=== PATIENT | female | born 1945 | race Caucasian/White ===

== ENCOUNTER 2017-10-08 14:02 | Inpatient (IN) | payer OTHER ==
[2017-10-08] MEDS: ALBUTEROL 0.5% (NEB) 2.5 MG/0.5 ML AMP INH (15:17)
[2017-10-08 15:59] LABS: ADD MAN DIFF? NO
[2017-10-08 16:02] LABS: ABNORMAL IP MESSAGE 1; BASOPHILS % 0.1 % (0.0-2.0); HEMATOCRIT 40.7 % (37.0-47.0); HEMOGLOBIN 12.6 g/dl (12.0-16.0); LYMPHOCYTES # 0.3 10^3/ul (0.8-2.9); LYMPHOCYTES % 1.6 % (15.0-51.0); MEAN CORPUSCULAR HEMOGLOBIN 31.1 pg (29.0-33.0); MEAN CORPUSCULAR VOLUME 100.5 fl (82.0-101.0); MEAN PLATELET VOLUME 10.3 fl (7.4-10.4); MONOCYTE # 1.1 10^3/ul (0.3-0.9); MONOCYTES % 4.9 % (0.0-11.0); NEUTROPHIL # 20.3 10^3/ul (1.6-7.5); NEUTROPHILS % 92.9 % (39.0-77.0); PLATELET COUNT 323 10^3/UL (140-415); RED BLOOD COUNT 4.05 10^6/ul (4.20-5.40); RED CELL DISTRIBUTION WIDTH 14.1 % (11.5-14.5)
[2017-10-08 16:02] LABS: WHITE BLOOD COUNT 21.8 10^3/ul (4.8-10.8)
[2017-10-08] MEDS: METHYLPREDNISOLONE 125 MG INJ IV ×2 (16:02→23:55)
[2017-10-08 16:04] LABS: POSITIVE DIFF @See below
[2017-10-08] MEDS: SOD CHLORIDE 0.9% 500 ML IV (16:08)
[2017-10-08 16:21] LABS: ANION GAP 13 (8-16); BLOOD UREA NITROGEN 16 mg/dl (7-20); CALCIUM 8.9 mg/dl (8.4-10.2); CARBON DIOXIDE 35 mmol/L (21-31); CHLORIDE 94 mmol/L (97-110); CREATININE 0.52 mg/dl (0.44-1.00); GLUCOSE 141 mg/dl (70-220); POTASSIUM 4.3 mmol/L (3.5-5.1); SODIUM 138 mmol/L (135-144)
[2017-10-08 16:33] LABS: B-TYPE NATRIURETIC PEPTIDE 2180 PG/ML (0-125); TROPONIN-I 0.012 ng/ml (0.00-0.12)
[2017-10-08] MEDS: LORAZEPAM 2 MG INJ IV ×2 (16:38→21:31)
[2017-10-08] MEDS: CEFEPIME 1GM/50 ML (PMX) 50 ML IVPB (17:02)
[2017-10-08] MEDS: VANCOMYCIN 1 GM (PMX) 250 ML IVPB (18:02)
[2017-10-08] MEDS ORDERED: ACETAMINOPHEN 325 MG TAB PO ×2 (19:00→19:30)
[2017-10-08] MEDS ORDERED: ONDANSETRON 4 MG INJ IV ×2 (19:00→19:30)
[2017-10-08] MEDS ORDERED: PIPER-TAZO 3.375 GM IV (PMX) 100 ML IVPB (19:30)
[2017-10-08] MEDS ORDERED: ALPRAZOLAM 0.5 MG TAB PO (19:30)
[2017-10-08] MEDS ORDERED: ZOLPIDEM 5 MG TAB PO (19:30)
[2017-10-08] MEDS ORDERED: LORAZEPAM 0.5 MG TAB PO (19:30)
[2017-10-08] MEDS ORDERED: DOCUSATE SODIUM 100 MG CAP PO (19:30)
[2017-10-08] MEDS ORDERED: LEVOFLOXACIN 750MG/D5W (PMX) 150 ML IV (19:30)
[2017-10-08] MEDS ORDERED: ALBUTEROL/IPRATROPIUM (NEB) 3 ML AMP NEB (19:30)
[2017-10-08] MEDS ORDERED: VANCOMYCIN IV PER PHARMACY XX (19:30)
[2017-10-08] MEDS: LEVOFLOXACIN 750MG/D5W (PMX) 150 ML IV (19:35)
[2017-10-08] MEDS: PIPER-TAZO 3.375 GM IV (PMX) 100 ML IVPB (20:07)
[2017-10-08 20:24] LABS: LACTIC ACID 1.4 mmol/L (0.5-2.0)
[2017-10-08] MEDS: ALBUTEROL/IPRATROPIUM (NEB) 3 ML AMP NEB (20:40)
[2017-10-08 20:41] LABS: TROPONIN-I < 0.012 ng/ml (0.00-0.12)
[2017-10-08] MEDS: traZODone 100 MG TAB PO (21:00)
[2017-10-08] MEDS: morphine (ER) 30 MG TAB PO (21:00)
[2017-10-08 21:44] LABS: LACTIC ACID 1.8 mmol/L (0.5-2.0)
[2017-10-08] MEDS: SALMETEROL/FLUTICASONE 500/50 INHA INH (22:27)
[2017-10-08] MEDS: MONTELUKAST 10 MG TAB PO (22:28)
[2017-10-08] MEDS: MOMETASONE 0.24 GM INHALER INH (22:28)
[2017-10-08] MEDS: AMIODARONE 200 MG TAB PO (22:29)
[2017-10-09] MEDS ORDERED: SOD CHLORIDE 0.9% 1,000 ML IV (00:30)
[2017-10-09] MEDS: ALBUTEROL/IPRATROPIUM (NEB) 3 ML AMP NEB ×6 (01:01→20:07)
[2017-10-09] MEDS: PIPER-TAZO 3.375 GM IV (PMX) 100 ML IVPB ×2 (01:38→05:58)
[2017-10-09 01:49] LABS: TROPONIN-I < 0.012 ng/ml (0.00-0.12)
[2017-10-09] MEDS: PANTOPRAZOLE (EC) 40 MG TAB PO (06:00)
[2017-10-09] MEDS: METHYLPREDNISOLONE 125 MG INJ IV ×3 (06:00→17:44)
[2017-10-09] MEDS: VANCOMYCIN 1 GM in 250 ML IVPB ×2 (06:03→17:44)
[2017-10-09 07:47] LABS: AADO2 Arterial 20.6 mmHg (7.0-24.0); Allen Test ACCEPTAB; Arterial Blood Gas Oxygen Sat 98.5 mmHG (95.0-100.0); Arterial Fraction of Oxyhgb 97.1 % (93.0-99.0); Arterial HCO3 35.7 mmol/L (22.0-26.0); Arterial MetHb 0.4 % (0.0-1.5); Arterial Total Hemglobin 13.9 g/dl (12.0-18.0); Arterial pCO2 71.3 mmhg (35-45); MODE NASAL CANNULA; Site Right Radial
[2017-10-09] MEDS: BISACODYL 10 MG SUPP PR (09:00)
[2017-10-09] MEDS: [UNRECOGNIZED DRUG - REMARK] XX ×2 (09:00→21:00)
[2017-10-09] MEDS ORDERED: SPIRONOLACTONE 25 MG TAB PO (09:00)
[2017-10-09] MEDS ORDERED: ASPIRIN 81 MG TAB PO (09:00)
[2017-10-09] MEDS: morphine (ER) 30 MG TAB PO ×2 (09:00→20:28)
[2017-10-09] MEDS ORDERED: METOPROLOL (XL) 100 MG TAB PO (09:00)
[2017-10-09] MEDS: SERTRALINE 100 MG TAB PO (09:33)
[2017-10-09] MEDS: ASPIRIN (EC) 325 MG TAB PO (09:34)
[2017-10-09] MEDS: ALPRAZOLAM 0.25 MG TAB PO ×3 (09:34→20:28)
[2017-10-09] MEDS: AMIODARONE 200 MG TAB PO (09:35)
[2017-10-09 09:36] LABS: ADD MAN DIFF? NO
[2017-10-09 09:46] LABS: WHITE BLOOD COUNT 12.3 10^3/ul (4.8-10.8)
[2017-10-09 09:46] LABS: ABNORMAL IP MESSAGE 1; BASOPHILS % 0.1 % (0.0-2.0); HEMOGLOBIN 12.7 g/dl (12.0-16.0); LYMPHOCYTES # 0.2 10^3/ul (0.8-2.9); LYMPHOCYTES % 1.2 % (15.0-51.0); MEAN CORPUSCULAR HEMOGLOBIN 31.7 pg (29.0-33.0); MEAN CORPUSCULAR HGB CONC 31.8 g/dl (32.0-37.0); MEAN CORPUSCULAR VOLUME 99.8 fl (82.0-101.0); MEAN PLATELET VOLUME 10.9 fl (7.4-10.4); MONOCYTE # 0.4 10^3/ul (0.3-0.9); MONOCYTES % 3.3 % (0.0-11.0); NEUTROPHIL # 11.7 10^3/ul (1.6-7.5); NEUTROPHILS % 94.9 % (39.0-77.0); PLATELET COUNT 320 10^3/UL (140-415); RED BLOOD COUNT 4.01 10^6/ul (4.20-5.40)
[2017-10-09] MEDS: SALMETEROL/FLUTICASONE 500/50 INHA INH ×2 (09:58→20:26)
[2017-10-09] MEDS: MOMETASONE 0.24 GM INHALER INH ×2 (09:58→20:26)
[2017-10-09 10:06] LABS: POSITIVE DIFF @See below
[2017-10-09 10:15] LABS: ALANINE AMINOTRANSFERASE 84 IU/L (13-69); ALBUMIN/GLOBULIN RATIO 1.07; ALKALINE PHOSPHATASE 314 IU/L (42-121); ANION GAP 15 (8-16); ASPARTATE AMINO TRANSFERASE 22 IU/L (15-46); BILIRUBIN,INDIRECT 0.4 mg/dl (0-1.1); BILIRUBIN,TOTAL 0.4 mg/dl (0.2-1.3); BLOOD UREA NITROGEN 15 mg/dl (7-20); CALCIUM 8.6 mg/dl (8.4-10.2); CARBON DIOXIDE 33 mmol/L (21-31); CHLORIDE 96 mmol/L (97-110); CHOL/HDL RATIO 3.8 RATIO; CHOLESTEROL 146 mg/dl (100-200); CREATININE 0.46 mg/dl (0.44-1.00); GLUCOSE 131 mg/dl (70-220); HDL CHOLESTEROL 38 mg/dl (33-92); LDL CHOLESTEROL,CALCULATED 89 mg/dl; POTASSIUM 3.9 mmol/L (3.5-5.1); SODIUM 140 mmol/L (135-144); TOTAL PROTEIN 5.8 g/dl (6.1-8.1); TRIGLYCERIDES 95 mg/dl (0-149)
[2017-10-09 10:29] LABS: HEMOGLOBIN A1C 5.5 % (0-5.9)
[2017-10-09] MEDS ORDERED: GLUCOSE GEL 15 GRAM TUBE BUCCAL (10:30)
[2017-10-09] MEDS ORDERED: GLUCAGON 1 MG INJ IM (10:30)
[2017-10-09] MEDS ORDERED: GLUCOSE GEL 15 GRAM TUBE PO ×2 (10:30)
[2017-10-09] MEDS ORDERED: DEXTROSE 50% 50 ML SYRINGE IV ×2 (10:30)
[2017-10-09 11:31] LABS: FREE T4 (FREE THYROXINE) 1.46 ng/dl (0.78-2.44)
[2017-10-09] MEDS ORDERED: DILTIAZEM 25 MG INJ IV (12:00)
[2017-10-09 12:03] LABS: THYROID STIMULATING HORMONE 0.637 MIU/L (0.465-4.680)
[2017-10-09] MEDS: APIXABAN 5 MG TABLET PO ×2 (12:22→20:28)
[2017-10-09] MEDS: DILTIAZEM 30 MG TAB PO ×2 (12:22→17:44)
[2017-10-09] MEDS: INSULIN ASPART [NOVOLOG] 3 ML PEN SC ×3 (13:56→20:29)
[2017-10-09] MEDS: DIGOXIN 500 MCG INJ IV ×4 (13:58→19:46)
[2017-10-09] MEDS: THEOPHYLLINE (SR) 400 MG TAB.ER.24HR PO (15:55)
[2017-10-09] MEDS: LEVOFLOXACIN 750MG/D5W (PMX) 150 ML IV (19:45)
[2017-10-09] MEDS: MONTELUKAST 10 MG TAB PO (20:28)
[2017-10-09] MEDS: traZODone 100 MG TAB PO (20:29)
[2017-10-09] MEDS: HYDROXYCHLOROQUINE 200 MG TAB PO (20:47)
[2017-10-10] MEDS: DILTIAZEM 30 MG TAB PO ×4 (00:03→18:09)
[2017-10-10] MEDS: METHYLPREDNISOLONE 125 MG INJ IV ×4 (00:05→22:50)
[2017-10-10] MEDS: HYDROCODONE/APAP (5/325) TAB PO (00:09)
[2017-10-10] MEDS: ALPRAZOLAM 0.25 MG TAB PO ×3 (01:38→22:52)
[2017-10-10] MEDS: ALBUTEROL/IPRATROPIUM (NEB) 3 ML AMP NEB ×6 (01:42→20:03)
[2017-10-10] MEDS: PANTOPRAZOLE (EC) 40 MG TAB PO (05:25)
[2017-10-10] MEDS: VANCOMYCIN 1 GM in 250 ML IVPB ×2 (05:35→06:37)
[2017-10-10 05:42] LABS: ADD MAN DIFF? NO
[2017-10-10 06:02] LABS: ABNORMAL IP MESSAGE 1; BASOPHILS % 0.1 % (0.0-2.0); HEMATOCRIT 37.9 % (37.0-47.0); HEMOGLOBIN 11.7 g/dl (12.0-16.0); LYMPHOCYTES # 0.1 10^3/ul (0.8-2.9); LYMPHOCYTES % 0.9 % (15.0-51.0); MEAN CORPUSCULAR HGB CONC 30.9 g/dl (32.0-37.0); MEAN CORPUSCULAR VOLUME 100.5 fl (82.0-101.0); MEAN PLATELET VOLUME 10.7 fl (7.4-10.4); MONOCYTE # 0.6 10^3/ul (0.3-0.9); MONOCYTES % 3.7 % (0.0-11.0); NEUTROPHIL # 14.2 10^3/ul (1.6-7.5); NEUTROPHILS % 94.9 % (39.0-77.0); PLATELET COUNT 290 10^3/UL (140-415); RED BLOOD COUNT 3.77 10^6/ul (4.20-5.40); RED CELL DISTRIBUTION WIDTH 14.1 % (11.5-14.5)
[2017-10-10 06:13] LABS: CREATINE KINASE 36 IU/L (23-200)
[2017-10-10 06:16] LABS: POSITIVE DIFF @See below
[2017-10-10 06:21] LABS: ALANINE AMINOTRANSFERASE 69 IU/L (13-69); ALBUMIN 2.7 g/dl (3.3-4.9); ALBUMIN/GLOBULIN RATIO 1.03; ALKALINE PHOSPHATASE 238 IU/L (42-121); ANION GAP 8 (8-16); ASPARTATE AMINO TRANSFERASE 22 IU/L (15-46); BILIRUBIN,INDIRECT 0.1 mg/dl (0-1.1); BILIRUBIN,TOTAL 0.1 mg/dl (0.2-1.3); BLOOD UREA NITROGEN 11 mg/dl (7-20); CALCIUM 8.3 mg/dl (8.4-10.2); CARBON DIOXIDE 38 mmol/L (21-31); CHLORIDE 102 mmol/L (97-110); GLUCOSE 139 mg/dl (70-220); POTASSIUM 4.2 mmol/L (3.5-5.1); SODIUM 144 mmol/L (135-144); TOTAL PROTEIN 5.3 g/dl (6.1-8.1)
[2017-10-10 06:24] LABS: B-TYPE NATRIURETIC PEPTIDE 1360 PG/ML (0-125)
[2017-10-10 06:26] LABS: CK INDEX 5.8; TROPONIN-I 0.034 ng/ml (0.00-0.12)
[2017-10-10 06:29] LABS: VANCOMYCIN,TROUGH 7.2 ug/ml (10.0-20.0)
[2017-10-10 06:33] LABS: MAGNESIUM 2.2 mg/dl (1.7-2.5)
[2017-10-10 06:33] LABS: PHOSPHORUS 2.5 mg/dl (2.5-4.9)
[2017-10-10 06:37] LABS: FREE T4 (FREE THYROXINE) 1.01 ng/dl (0.78-2.44)
[2017-10-10] MEDS: INSULIN ASPART [NOVOLOG] 3 ML PEN SC ×4 (07:55→20:35)
[2017-10-10] MEDS: BISACODYL 10 MG SUPP PR (09:00)
[2017-10-10] MEDS ORDERED: ASPIRIN (EC) 81 MG TAB PO (09:00)
[2017-10-10] MEDS: [UNRECOGNIZED DRUG - REMARK] XX ×2 (09:00→20:36)
[2017-10-10] MEDS: MOMETASONE 0.24 GM INHALER INH ×2 (09:49→20:34)
[2017-10-10] MEDS: APIXABAN 5 MG TABLET PO ×2 (09:49→20:35)
[2017-10-10] MEDS: SALMETEROL/FLUTICASONE 500/50 INHA INH ×2 (09:49→20:34)
[2017-10-10] MEDS: SERTRALINE 100 MG TAB PO (09:50)
[2017-10-10] MEDS: HYDROXYCHLOROQUINE 200 MG TAB PO ×2 (09:50→20:35)
[2017-10-10] MEDS: morphine (ER) 30 MG TAB PO ×2 (09:51→20:39)
[2017-10-10] MEDS: DIGOXIN 500 MCG INJ IV (09:53)
[2017-10-10] MEDS: THEOPHYLLINE (SR) 400 MG TAB.ER.24HR PO (12:16)
[2017-10-10] MEDS: VANCOMYCIN 1 GM 250 ML IVPB ×2 (14:26→22:51)
[2017-10-10] MEDS: SOD CHLORIDE 0.9% 100 ML (16:11)
[2017-10-10] MEDS: IOHEXOL 100 ML (16:11)
[2017-10-10] MEDS: LEVOFLOXACIN 750MG/D5W (PMX) 150 ML IV (20:33)
[2017-10-10] MEDS: MONTELUKAST 10 MG TAB PO (20:35)
[2017-10-10] MEDS: traZODone 100 MG TAB PO (20:35)
[2017-10-11] MEDS: DILTIAZEM 30 MG TAB PO ×3 (01:04→12:25)
[2017-10-11] MEDS: ALBUTEROL/IPRATROPIUM (NEB) 3 ML AMP NEB ×6 (01:15→20:20)
[2017-10-11] MEDS: METHYLPREDNISOLONE 125 MG INJ IV ×3 (05:07→22:46)
[2017-10-11] MEDS: PANTOPRAZOLE (EC) 40 MG TAB PO (05:08)
[2017-10-11] MEDS: VANCOMYCIN 1 GM 250 ML IVPB ×3 (05:08→22:47)
[2017-10-11] MEDS: INSULIN ASPART [NOVOLOG] 3 ML PEN SC ×4 (07:55→21:00)
[2017-10-11] MEDS: SERTRALINE 100 MG TAB PO (08:20)
[2017-10-11] MEDS: HYDROXYCHLOROQUINE 200 MG TAB PO ×2 (08:20→20:00)
[2017-10-11] MEDS: APIXABAN 5 MG TABLET PO ×2 (08:21→20:00)
[2017-10-11] MEDS: SALMETEROL/FLUTICASONE 500/50 INHA INH ×2 (08:21→20:01)
[2017-10-11] MEDS: MOMETASONE 0.24 GM INHALER INH ×2 (08:22→20:01)
[2017-10-11] MEDS: morphine (ER) 30 MG TAB PO ×2 (08:23→20:01)
[2017-10-11] MEDS: [UNRECOGNIZED DRUG - REMARK] XX ×2 (08:24→22:29)
[2017-10-11] MEDS: BISACODYL 10 MG SUPP PR (08:24)
[2017-10-11] MEDS: THEOPHYLLINE (SR) 400 MG TAB.ER.24HR PO (10:09)
[2017-10-11] MEDS: ALPRAZOLAM 0.25 MG TAB PO ×2 (10:10→20:01)
[2017-10-11 12:13] LABS: ALANINE AMINOTRANSFERASE 76 IU/L (13-69); ALBUMIN/GLOBULIN RATIO 1.25; ALKALINE PHOSPHATASE 238 IU/L (42-121); ANION GAP 14 (8-16); ASPARTATE AMINO TRANSFERASE 28 IU/L (15-46); BILIRUBIN,INDIRECT 0.3 mg/dl (0-1.1); BILIRUBIN,TOTAL 0.3 mg/dl (0.2-1.3); BLOOD UREA NITROGEN 13 mg/dl (7-20); CALCIUM 8.9 mg/dl (8.4-10.2); CARBON DIOXIDE 37 mmol/L (21-31); CHLORIDE 96 mmol/L (97-110); CREATININE 0.46 mg/dl (0.44-1.00); GLUCOSE 167 mg/dl (70-220); MAGNESIUM 2.4 mg/dl (1.7-2.5); POTASSIUM 4.8 mmol/L (3.5-5.1); SODIUM 142 mmol/L (135-144); TOTAL PROTEIN 5.4 g/dl (6.1-8.1)
[2017-10-11 12:31] LABS: DIGOXIN 1.3 ng/ml (1.0-2.0)
[2017-10-11 15:41] LABS: VANCOMYCIN,TROUGH 12.4 ug/ml (10.0-20.0)
[2017-10-11] MEDS: traZODone 100 MG TAB PO (20:00)
[2017-10-11] MEDS: MONTELUKAST 10 MG TAB PO (20:00)
[2017-10-11] MEDS: DILTIAZEM 60 MG TAB PO (21:05)
[2017-10-11] MEDS: LEVOFLOXACIN 750MG/D5W (PMX) 150 ML IV (22:46)
[2017-10-12] MEDS: ALBUTEROL/IPRATROPIUM (NEB) 3 ML AMP NEB ×4 (01:17→13:42)
[2017-10-12] MEDS: METHYLPREDNISOLONE 125 MG INJ IV ×2 (06:35→14:14)
[2017-10-12] MEDS: ALPRAZOLAM 0.25 MG TAB PO (06:35)
[2017-10-12] MEDS: VANCOMYCIN 1 GM 250 ML IVPB (06:36)
[2017-10-12] MEDS: PANTOPRAZOLE (EC) 40 MG TAB PO (06:36)
[2017-10-12] MEDS: DILTIAZEM 60 MG TAB PO ×2 (06:37→14:14)
[2017-10-12] MEDS: INSULIN ASPART [NOVOLOG] 3 ML PEN SC ×2 (07:55→11:50)
[2017-10-12] MEDS: APIXABAN 5 MG TABLET PO (08:40)
[2017-10-12] MEDS: SERTRALINE 100 MG TAB PO (08:40)
[2017-10-12] MEDS: MOMETASONE 0.24 GM INHALER INH (08:41)
[2017-10-12] MEDS: SALMETEROL/FLUTICASONE 500/50 INHA INH (08:41)
[2017-10-12] MEDS: morphine (ER) 30 MG TAB PO (08:41)
[2017-10-12] MEDS: HYDROXYCHLOROQUINE 200 MG TAB PO (08:41)
[2017-10-12] MEDS: [UNRECOGNIZED DRUG - REMARK] XX (08:42)
[2017-10-12] MEDS: THEOPHYLLINE (SR) 400 MG TAB.ER.24HR PO (08:42)
[2017-10-12] MEDS: BISACODYL 10 MG SUPP PR (08:42)
== END 2017-10-12 15:07 | disposition home or self-care (01) | DRG 193 ==
LOC: TEL 18:57 → E/R 14:02
DX: J18.9 Pneumonia, unspecified organism (principal); J96.20 Acute and chronic respiratory failure, unspecified whether with hypoxia or hypercapnia; G93.49 Other encephalopathy; J44.1 Chronic obstructive pulmonary disease with (acute) exacerbation; C34.90 Malignant neoplasm of unspecified part of unspecified bronchus or lung; I50.22 Chronic systolic (congestive) heart failure; J44.0 Chronic obstructive pulmonary disease with (acute) lower respiratory infection; I11.0 Hypertensive heart disease with heart failure; I48.91 Unspecified atrial fibrillation; Z87.891 Personal history of nicotine dependence; M06.9 Rheumatoid arthritis, unspecified; F41.8 Other specified anxiety disorders; R73.9 Hyperglycemia, unspecified; Z79.52 Long term (current) use of systemic steroids
CPT/HCPCS: 36600; 71045; 71275; 80048; 80053; 80061; 80162; 80202; 82550; 82553; 82803; 82962; 83036; 83605; 83735; 83880; 84100; 84439; 84443; 84484; 85025; 87040; 87081; 92526; 92610; 93005; 93306; 93970; 94640; 94644; 94660; 94664; 96365; 96375; 96376; 99285-25